=== PATIENT | male | born 1965 | race Two or more races ===

== ENCOUNTER 2018-05-25 08:01 | Outpatient (CLI) | payer OTHER ==
[~2018-05-25 08:01] MED LIST: LIPITOR20 MG
== END 2018-05-25 08:03 | disposition home or self-care (01) ==
LOC: SONOGRAMA 08:01
DX: R10.30 Lower abdominal pain, unspecified (principal)

== ENCOUNTER 2021-12-03 11:33 | Emergency (ER) | payer OTHER ==
[~2021-12-03] VITALS: Ht 177.8 cm; Wt 97.5 kg
[2021-12-03] MEDS ORDERED: CIPRO500 MG PO (18:06)
[2021-12-03] MEDS ORDERED: LEVSIN/SL0.125 MG SL (18:06)
[2021-12-03] MEDS ORDERED: METRONIDAZOLE500 MG PO (18:06)
== END 2021-12-03 21:12 | disposition home or self-care (01) ==
LOC: ER 11:33
DX: R10.32 Left lower quadrant pain (principal); K57.92 Diverticulitis of intestine, part unspecified, without perforation or abscess without bleeding